=== PATIENT | male | born 2000 | race Hispanic/Latino ===

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

== ENCOUNTER 2024-06-02 22:04 | Emergency (ER) | payer BC, SELFPAY | END 2024-06-02 23:12 | disposition home or self-care (01) | LOC: ERS 22:04 | DX: R07.89 Other chest pain (principal) | CPT/HCPCS: 99283 ==